=== PATIENT | male | born 1975 | race Caucasian/White ===

== ENCOUNTER 2016-06-27 10:22 | Emergency (ER) | payer OTHER ==
[~2016-06-27] VITALS: Ht 182.9 cm; Wt 111.4 kg
[~2016-06-27 10:22] MED LIST: FLUT0.15; IBUP-103 PO; LORA-749 PO
[2016-06-27 10:26] VITALS: TEMP 36.7; Ht 182.9 cm; Wt 111.4 kg
[2016-06-27] MEDS ORDERED: ALBUT/IPRATROP 3MG/0.5MG NEB 3 ML VIAL INH STA ×2 (10:47→12:30)
[2016-06-27] MEDS ORDERED: FLVHFA44 INH ×2 (10:57→13:32)
[2016-06-27] MEDS ORDERED: ADVIN10/60 INH (10:57)
[2016-06-27 11:16] VITALS: O2SAT 94
--- NOTE | 2016-06-27 11:24 | DIAGNOSTIC IMAGING REPORT ---
CHEST ONE VIEW PORTABLE CLINICAL HISTORY: Respiratory distress. Dyspnea. COMPARISON STUDY: Chest radiograph November 20, 2012. FINDINGS: There is no pneumothorax or pleural effusion. There is borderline cardiomegaly without evidence of pulmonary edema. No consolidation is identified to suggest pneumonia. IMPRESSION: 1. No acute cardiopulmonary findings. 2. Borderline cardiomegaly. Electronically signed by: Dickson Zuluaga M.D. 06/27/2016 11:22 AM Dictated Date/Time: 06/27/2016 11:22 AM
[2016-06-27 11:28] LABS: URINE APPEARANCE CLEAR (CLEAR); URINE BILIRUBIN NEG (NEG); URINE COLOR YELLOW; URINE NITRITE NEG (NEG); URINE PH 8.5 (4.5-7.5); UROBILINOGEN NEG (NEG)
[2016-06-27 11:37] LABS: MANUAL MICROSCOPIC REQUIRED? NO; REVIEW REQ? NO
[2016-06-27 11:39] LABS: BASO % 0.3 %; BASO ABS # 0.02 K/uL (0-0.2); COMPLETE YES; EOS % 1.3 %; HEMATOCRIT 42.7 % (42-52); IG% 0.3 %; LYMPH % 20.8 %; LYMPH ABS # 1.65 K/uL (1.2-3.4); MEAN CORPUSCULAR HEMOGLOBIN 30.9 pg (25-34); MEAN CORPUSCULAR HGB CONC 35.1 g/dl (32-36); MEAN PLATELET VOLUME 9.9 fL (7.4-10.4); MONO % 6.8 %; NEUT % 70.5 %; PLATELET COUNT 209 K/uL (130-400); RED BLOOD COUNT 4.85 M/uL (4.7-6.1); WHITE BLOOD COUNT 7.95 K/uL (4.8-10.8)
[2016-06-27] MEDS ORDERED: METHYLPREDNISOLONE 125 MG VIAL IV STA (11:48)
[2016-06-27 11:52] LABS: ALT/SGPT 35 U/L (12-78); AST/SGOT 20 U/L (15-37); BLOOD UREA NITROGEN 12 mg/dl (7-18); BUN/CREATININE RATIO 13.2 (10-20); CALCIUM 8.6 mg/dl (8.5-10.1); CARBON DIOXIDE 28 mmol/L (21-32); CHLORIDE 108 mmol/L (98-107); CREATININE 0.92 mg/dl (0.60-1.40); GLUCOSE 82 mg/dl (70-99); POTASSIUM 4.1 mmol/L (3.5-5.1); SODIUM 141 mmol/L (136-145)
[2016-06-27 12:03] LABS: ALB/GLOB RATIO 1.2 (0.9-2); ALKALINE PHOSPHATASE 74 U/L (45-117); CKMB/CK RATIO 0.7 (0-3.0)
[2016-06-27] MEDS ORDERED: AZITHROMYCIN 250 MG TAB PO STA (13:29)
[2016-06-27] MEDS ORDERED: AZIT-60 PO (13:32)
[2016-06-27] MEDS ORDERED: PRVHFAIN INH (13:32)
[2016-06-27] MEDS ORDERED: PRED50TA PO (13:32)
[2016-06-27 13:57] VITALS: BP 128/68; PULSE 85; O2SAT 95
--- NOTE | 2016-06-27 16:40 | EMERGENCY ROOM VISIT NOTE ---
History Report prepared by Jorge: Karishma Meek Under the Supervision of: Dr. Xander Caba M.D. First contact with patient: 10:29 Chief Complaint: COUGH Stated Complaint: COUGH, TIGHT CHEST Nursing Triage Summary: pt reports rust to green colored mucus started 2 months ago has chest tightness started 1 month ago was seen may 25 dx with pneumonia and a few days later had f/u with lexa pipefitter helper told he has adult rsv. pt reports finishing course of antibiotics , prednisone, flovent, and advair. still uses inhalers last used this am. pt reports sx seemed better had white mucus yesterday sx worsened again. unable to get off couch. has body aches . pt reports no testing was done at time of dx. History of Present Illness The patient is a 40 year old male who presents to the Emergency Room with complaints of a constant worsening cough starting two months ago. The patient states that he had been fighting some sort of cold for the past two months that has made it hard to breath due to congestion. The patient reports that he was previously diagnosed with pneumonia in [facility]. He states that they gave him an inhaler and he has been using it, with only a little relief. He states that two days ago he started to experience a flare up of his symptoms. He states that his cough, chills, fatigue, and chest tightness worsened. The patient reports that the symptoms worsen with exertion. The patient complains of achiness. The patient reports a history of an umbilical hernia repair and a bowel resection for diverticulitis. The patient denies any recent travel and being a smoker. Pt denies LOC, headache, fevers, diaphoresis, visual changes, neck pain, chest pain, nausea, vomiting, abdominal pain, back pain, melena, hematochezia, urinary symptoms, numbness, weakness, lymphadenopathy, rash, or other complaints. Source of History: patient Onset: two months ago Position: other (global) Quality: other (global) Timing: constant Modifying Factors (Worsening): exertion Modifying Factors (Relieving): other (inhaler use) Associated Symptoms: + SOB, + chills, + cough, + fatigue Note: The patinet complains of achiness and his chest being tight. Review of Systems See HPI for pertinent positives and negatives. A total of ten systems were reviewed and were otherwise negative. Past Medical & Surgical Medical Problems: (1) Diverticulitis Surgical Problems: (1) H/O resection of large bowel (2) Umbilical hernia Family History No pertinent family history Social History Smoking Status: Never Smoker Alcohol Use: occasionally Drug Use: none Marital Status: Housing Status: lives with family Occupation Status: employed Current/Historical Medications Scheduled Albuterol (Ventolin Hfa), 2 PUFFS INH QID Azithromycin (Zithromax), 250 MG PO DAILY Fluticasone Prop/Salmeterol (Advair Diskus 100/50 60 Dose), 1 PUFF INH BID Fluticasone Propionate (Flovent Hfa), 2 PUFFS INH BID Prednisone (Prednisone), 50 MG PO DAILY Scheduled PRN Fluticasone Propionate (Flovent Hfa), 2 PUFFS INH DAILY PRN for Shortness of Breath Allergies Coded Allergies: POLLEN (Verified Allergy, Intermediate, itchy eyes, runny nose, sneezing, 06/27/16) Physical Exam Vital Signs Date Time Temp Pulse Resp B/P Pulse Ox O2 Delivery O2 Flow Rate FiO2 06/27/16 13:57 85 18 128/68 95 Room Air 06/27/16 12:43 77 16 139/70 95 Room Air 06/27/16 12:01 65 12 110/63 97 Room Air 06/27/16 11:16 94 Room Air 06/27/16 10:26 36.7 82 20 130/93 95 Room Air Physical Exam GENERAL: Awake, alert, uncomfortable appearing, in no distress HENT: Normocephalic, atraumatic. Oropharynx unremarkable. EYES: Normal conjunctiva. Sclera non-icteric. NECK: Supple. No nuchal rigidity. FROM. No JVD. RESPIRATORY: Clear to auscultation. CARDIAC: Regular rate, normal rhythm. Extremities warm and well perfused. Pulses equal. ABDOMEN: Soft, non-distended. No tenderness to palpation. No rebound or guarding. No masses. RECTAL: Deferred. MUSCULOSKELETAL: Chest examination reveals no tenderness. The back is symmetrical on inspection without obvious abnormality. There is no CVA tenderness to palpation. No joint edema. LOWER EXTREMITIES: Calves are equal size bilaterally and non-tender. No edema. No discoloration. NEURO: Normal sensorium. No sensory or motor deficits noted. SKIN: No rash or jaundice noted. Medical Decision & Procedures ER Provider Diagnostic Interpretation: Radiology results as stated below per my review and radiologist interpretation: CHEST ONE VIEW PORTABLE CLINICAL HISTORY: Respiratory distress. Dyspnea. COMPARISON STUDY: Chest radiograph November 20, 2012. FINDINGS: There is no pneumothorax or pleural effusion. There is borderline cardiomegaly without evidence of pulmonary edema. No consolidation is identified to suggest pneumonia. IMPRESSION: 1. No acute cardiopulmonary findings. 2. Borderline cardiomegaly. Electronically signed by: Dickson Zuluaga M.D. 06/27/2016 11:22 AM Dictated Date/Time: 06/27/2016 11:22 AM Laboratory Results 06/27/16 11:15 Red Blood Count 4.85, Mean Corpuscular Volume 88.0, Mean Corpuscular Hemoglobin 30.9, Mean Corpuscular Hemoglobin Concent 35.1, Mean Platelet Volume 9.9, Neutrophils (%) (Auto) 70.5, Lymphocytes (%) (Auto) 20.8, Monocytes (%) (Auto) 6.8, Eosinophils (%) (Auto) 1.3, Basophils (%) (Auto) 0.3, Neutrophils # (Auto) 5.62, Lymphocytes # (Auto) 1.65, Monocytes # (Auto) 0.54, Eosinophils # (Auto) 0.10, Basophils # (Auto) 0.02 06/27/16 11:15 Test 06/27/16 11:15 06/27/16 11:16 06/27/16 11:20 White Blood Count 7.95 K/uL (4.8-10.8) Red Blood Count 4.85 M/uL (4.7-6.1) Hemoglobin 15.0 g/dL (14.0-18.0) Hematocrit 42.7 % (42-52) Mean Corpuscular Volume 88.0 fL (80-100) Mean Corpuscular Hemoglobin 30.9 pg (25-34) Mean Corpuscular Hemoglobin Concent 35.1 g/dl (32-36) Platelet Count 209 K/uL (130-400) Mean Platelet Volume 9.9 fL (7.4-10.4) Neutrophils (%) (Auto) 70.5 % Lymphocytes (%) (Auto) 20.8 % Monocytes (%) (Auto) 6.8 % Eosinophils (%) (Auto) 1.3 % Basophils (%) (Auto) 0.3 % Neutrophils # (Auto) 5.62 K/uL (1.4-6.5) Lymphocytes # (Auto) 1.65 K/uL (1.2-3.4) Monocytes # (Auto) 0.54 K/uL (0.11-0.59) Eosinophils # (Auto) 0.10 K/uL (0-0.5) Basophils # (Auto) 0.02 K/uL (0-0.2) RDW Standard Deviation 41.8 fL (36.4-46.3) RDW Coefficient of Variation 13.0 % (11.5-14.5) Immature Granulocyte % (Auto) 0.3 % Immature Granulocyte # (Auto) 0.02 K/uL (0.00-0.02) Anion Gap 5.0 mmol/L (3-11) Est Creatinine Clear Calc Drug Dose 139.0 ml/min Estimated GFR () 121.0 Estimated GFR (Non- 104.4 BUN/Creatinine Ratio 13.2 (10-20) Calcium Level 8.6 mg/dl (8.5-10.1) Total Bilirubin 0.6 mg/dl (0.2-1) Aspartate Amino Transf (AST/SGOT) 20 U/L (15-37) Alanine Aminotransferase (ALT/SGPT) 35 U/L (12-78) Alkaline Phosphatase 74 U/L (45-117) Total Creatine Kinase 116 U/L (39-308) Creatine Kinase MB 0.8 ng/ml (0.5-3.6) Creatine Kinase MB Ratio 0.7 (0-3.0) Troponin I < 0.015 ng/ml (0-0.045) Pro-B-Type Natriuretic Peptide 29 pg/ml (0-450) Total Protein 6.9 gm/dl (6.4-8.2) Albumin 3.8 gm/dl (3.4-5.0) Globulin 3.1 gm/dl (2.5-4.0) Albumin/Globulin Ratio 1.2 (0.9-2) Bedside D-Dimer 227 ng/mlFEU (0-450) Urine Color YELLOW Urine Appearance CLEAR (CLEAR) Urine pH 8.5 (4.5-7.5) Urine Specific Thornton 1.020 (1.000-1.030) Urine Protein NEG (NEG) Urine Glucose (UA) NEG (NEG) Urine Ketones NEG (NEG) Urine Occult Blood NEG (NEG) Urine Nitrite NEG (NEG) Urine Bilirubin NEG (NEG) Urine Urobilinogen NEG (NEG) Urine Leukocyte Esterase NEG (NEG) Laboratory results reviewed by me Medications Administered Medications (Trade) Dose Ordered Sig/Charanjit Route Start Time Stop Time Status Last Admin Dose Admin Albuterol/ Ipratropium (Duoneb) 3 ml NOW STAT INH 06/27/16 10:47 06/27/16 10:49 DC 06/27/16 11:19 3 ML Methylprednisolone Sodium Succinate (Solu-Medrol IV) 125 mg NOW STAT IV 06/27/16 11:48 06/27/16 11:49 DC 06/27/16 12:01 125 MG Albuterol/ Ipratropium (Duoneb) 3 ml NOW STAT INH 06/27/16 12:30 06/27/16 12:32 DC 06/27/16 12:43 3 ML Azithromycin (Zithromax Tab) 500 mg NOW STAT PO 06/27/16 13:29 06/27/16 13:30 DC 06/27/16 13:59 500 MG Prednisone (PredniSONE TAB) 60 mg NOW STAT PO 06/27/16 13:29 06/27/16 13:30 DC 06/27/16 14:00 60 MG ECG Indication: SOB/dyspnea Rate (beats per minute): 69 Rhythm: sinus with SA Findings: no acute ischemic change, no ectopy ED Course 1046: The patient was evaluated in room A10. A complete history and physical exam was performed. 1047: Ordered Duoneb 3 ml INH. 1148: Ordered Solu-Medrol IV 125 mg IV. 1206: I reevaluated the patient and he is feeling better with the breathing treatment. 1230: Ordered Duoneb 3 ml INH. 1329: Ordered Prednisone 60 mg PO, Zithromax Tab 500 mg PO. 1331: I reevaluated the patient. Discussed results and discharge instructions: He verbalized understanding and agreement. The patient is ready for discharge. Medical Decision Triage Nursing notes reviewed. The patient's presentation and history were concerning for shortness of breath and chest tightness with history of pneumonia. Etiologies such as pneumonia, COPD, reactive airway disease, CHF, cardiac ischemia, pulmonary embolism, pneumothorax, musculoskeletal, infections, gastrointestinal, as well as others were entertained. The patient was evaluated. His sat was hovering in the 93-95% range. There is no significant wheezing on examination. Blood work, EKG, and chest x-ray was performed. The patient was given a DuoNeb. Solu-Medrol was administered. The patient received a second DuoNeb treatment. His CBC, chemistry panel, urinalysis, and cardiac markers were unremarkable. D-dimer is negative. Chest imaging revealed no evidence of pneumonia. He does have a productive cough. On further history the patient does note a childhood history of reactive airway disease. I discussed conservative treatment with him. The patient felt comfortable with this. He will be treated with Flovent, albuterol inhaler, prednisone, and Zithromax. I did discuss referral to pulmonology. If he worsens in any way he will be back to the emergency department. The patient felt very comfortable with this plan as did his significant other. By the evaluation outlined above other emergent etiologies such as those listed in the differential, as well as others, were deemed relatively unlikely. Return instructions were outlined and the patient was discharged in stable condition. The patient was referred to PCP and pulmonology for follow-up for a recheck of the current condition. The chart was completed utilizing [employer] Speech voice recognition software. Grammatical errors, random word insertions, pronoun errors, and incomplete sentences are an occasional consequence of this system due to software limitations, ambient noise, and hardware issues. Any formal questions or concerns about the content, text, or information contained within the body of this dictation should be directly addressed to the physician for clarification. Impression Primary Impression: Cough Additional Impression: Shortness of breath Scribe Attestation The scribe's documentation has been prepared under my direction and personally reviewed by me in its entirety. I confirm that the note above accurately reflects all work, treatment, procedures, and medical decision making performed by me. Departure Information Dispostion Home / Self-Care Prescriptions Fluticasone Propionate (Flovent Hfa) 120 Puffs/5280 Mcg Aero 2 PUFFS INH BID for 30 Days, #1 INHALER 2 Refills Prov: Xander Caba MD 06/27/16 Albuterol (Ventolin Hfa) 60 Puffs/5400 Mcg Aers 2 PUFFS INH QID for 5 Days, #1 INHALER Prov: Xander Caba MD 06/27/16 Azithromycin (ZITHROMAX) 250 Mg Tab 250 MG PO DAILY, #4 TAB Prov: Xander Caba MD 06/27/16 Prednisone (Prednisone) 50 Mg Tab 50 MG PO DAILY for 4 Days, #4 TAB Prov: Xander Caba MD 06/27/16 Referrals No Doctor, Assigned (PCP) Forms HOME CARE DOCUMENTATION FORM, IMPORTANT VISIT INFORMATION Patient Instructions My [facility] Additional Instructions Albuterol Inhaler: Take 2 puffs four times daily for five days, then as needed. Flovent Inhaler: Take one puff twice daily for your breathing. Prednisone 50mg: Once daily until the prescription is finished. It is best to take this earlier in the day as some patients note occasional difficulty falling asleep when taken in the late evening. Azithromycin(Zithromax) 250mg: Take one a day for 4 additional days. All antibiotics can cause diarrhea. If this occurs and you feel worse or it does not resolve in 1-2 days follow up with your doctor or return to the Emergency Department as this could be signs of serious underlying problems. Any medication can cause an allergic reaction, stop the pills immediately and return to the ER for rash, hives, breathing difficulties, or swelling. Acetaminophen(Tylenol) may be used for fever or pain. Use 1000mg every six hours as needed. Avoid using more than 4000mg in a 24 hour period. (AND/OR) Ibuprofen(Motrin, Advil) may be used for fever or pain. Use 600mg every six hours as needed. Take with food. Avoid using more than 2400mg in a 24 hour period. Do not use 2400mg per day for more than three consecutive days without physician direction. Prolonged inappropriate use can lead to stomach upset or ulcers. Rest and drink plenty of fluids. Avoid smoke/smoking, fumes, dust, or any triggers in the past that may have affected your breathing. Continue current medications. Return to the ER for chest pain, difficulty breathing, fevers, vomiting, worsening of your condition, or as needed. Follow up with your primary physician this week for a recheck of your current condition. Follow-up with Dr. Darling of pulmonology as discussed. Call the office on Tuesday. Problem Qualifiers
== END 2016-06-27 14:06 | disposition home or self-care (01) ==
LOC: C.EDB 10:23 → C.EDA 14:06
DX: R05 Cough (principal); R06.02 Shortness of breath; K42.9 Umbilical hernia without obstruction or gangrene

== ENCOUNTER 2024-06-16 14:24 | Observation (INO) ==
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
[2024-06-16] MEDS: ONDANSETRON INJ 2 MG/ML 2 ML VIAL IV STA (15:17)
[2024-06-16] MEDS: diphenhydrAMINE 50 MG/ML VIAL IV STA ×2 (15:17→18:12)
[2024-06-16] MEDS: SODIUM CHLORIDE 0.9% 1,000 ML IV ONE ×2 (15:18→18:12)
[2024-06-16] MEDS: PROCHLORPERAZINE 5 MG/ML 2 ML VIAL IV STA (15:18)
[2024-06-16 15:25] LABS: Basophils # (auto) 0.05 K/uL (0.00-0.20); Basophils % (auto) 0.5 %; Eosinophils # (auto) 0.22 K/uL (0.00-0.50); Hematocrit (blood only) 44.4 % (42.0-52.0); Hemoglobin 15.3 g/dl (14.0-18.0); Immature Granulocytes # (auto) 0.04 K/uL (0.01-0.20); Immature Granulocytes % (auto) 0.4 %; Lymphocytes # (auto) 2.81 K/uL (1.20-3.40); Mean Corpuscular Hemoglobin 29.1 pg (25.0-34.0); Mean Corpuscular Hgb Conc 34.5 g/dL (32.0-36.0); Mean Corpuscular Volume 84.6 fL (80.0-100.0); Monocytes # (auto) 0.73 K/uL (0.11-0.59); Monocytes % (auto) 6.8 %; Neutrophils # (auto) 6.94 K/uL (1.40-6.50); Neutrophils % (auto) 64.3 %; Platelet Count 292 K/uL (130-400); RDW Coefficient of Variation 12.9 % (11.5-14.5); RDW Standard Deviation 39.6 fL (36.4-46.3); Red Blood Count 5.25 M/uL (4.70-6.10); White Blood Count 10.79 K/ul (4.8-10.8)
[2024-06-16 15:41] LABS: Alanine Aminotransferase 21 U/L (7-52); Albumin Level 4.8 gm/dl (3.4-5.0); Alkaline Phosphatase 68 U/L (34-104); Anion Gap 9 (3-11); Aspartate Aminotransferase 26 U/L (13-39); Bilirubin,Total 0.6 mg/dl (0.2-1.0); Blood Urea Nitrogen 14 mg/dl (6-23); Calcium 9.5 mg/dl (8.6-10.3); Carbon Dioxide 25 mmol/L (21-32); Chloride 105 mmol/L (98-107); Globulin 2.4 gm/dl (2.5-4.0); Glucose 108 mg/dl (70-99(Fasting)); Potassium 3.6 mmol/L (3.5-5.1); Sodium 139 mmol/L (136-145); Total Protein 7.2 gm/dl (6.0-8.3)
[2024-06-16 16:09] LABS: Partial Thromboplastin Ratio 0.9; Partial Thromboplastin Time 24 Seconds (21-31); Prothrombin Time 10.9 Seconds (9.0-12.0)
[2024-06-16] MEDS: dexAMETHasone**PF** 10 MG/ML VIAL IV ONE (17:19)
[2024-06-16] MEDS: MECLIZINE HCL 25 MG TAB PO STA (17:20)
[2024-06-16] MEDS: KETOROLAC TROMETHAMINE 15 MG/ML VIAL IV STA (17:20)
[2024-06-16] MEDS: LORazepam 2 MG/1 ML VIAL IV STA (17:38)
[2024-06-16] MEDS: OPTIRAY 320 125ml IV ONE (17:48)
--- NOTE | 2024-06-16 18:09 | CT Scan Report ---
CT head without contrast Technique: Using multidetector thin collimation helical acquisition technique, axial, coronal and sagittal CT images from the skull base to the vertex were obtained without intravenous contrast. Dose reduction techniques were achieved by using automatic exposure control and/or adjustment of mA and/or kV according to patient size and/or use of iterative reconstruction technique. History and Findings: No intracranial hemorrhage, mass-effect, or midline shift. The ventricles are proportionate to the cerebral sulci. The platt to white matter differentiation of the cerebral hemispheres is preserved. The basal cisterns are patent. The visualized paranasal sinuses are clear. Mastoid air cells are clear. Impression: No acute intracranial pathology. Electronically signed by Aurelia Lu 06-16-2024 6:09 PM
[2024-06-16] MEDS: METOCLOPRAMIDE HCL INJ 5 MG/ML 2 ML VIAL IV STA (18:12)
--- NOTE | 2024-06-16 18:16 | CT Scan Report ---
CT angiogram of the neck CT angiogram of the brain . Technique: HEAD CT: Using multidetector thin collimation helical acquisition technique, axial, coronal and sagittal CT images from the skull base to the vertex were obtained without intravenous contrast. HEAD and NECK CTA: During rapid bolus intravenous injection of nonionic contrast material, axial images were obtained using thin collimation multidetector helical technique from the base of the neck through the of vertex of the head. This CT angiogram data was reconstructed at thin intervals with mild overlap. 3D reconstructions were obtained. The axial source images, multiplanar reformations, 3D reconstructions in both maximum intensity projection display and volume rendered models were reviewed. Dose reduction techniques were achieved by using automatic exposure control and/or adjustment of mA and/or kV according to patient size and/or use of iterative reconstruction technique. Comp: Same day Ct head, History and Findings: Critical Neck CTA:Extracranial circulation: Patent bilateral common carotid arteries. Patent bilateral bulb areas. Patent bilateral ICAs. Patent bilateral equal size vertebral arteries. There is plaque at the origin of the left vertebral artery with stenosis probably measuring 50 to 60%. Impression Patent carotid vessels. Probable stenosis at the origin of the left vertebral artery. Electronically signed by Aurelia Lu 06-16-2024 6:16 PM
--- NOTE | 2024-06-16 18:20 | CT Scan Report ---
CT angiogram of the brain . Technique: HEAD CT: Using multidetector thin collimation helical acquisition technique, axial, coronal and sagittal CT images from the skull base to the vertex were obtained without intravenous contrast. HEAD and NECK CTA: During rapid bolus intravenous injection of nonionic contrast material, axial images were obtained using thin collimation multidetector helical technique from the base of the neck through the of vertex of the head. This CT angiogram data was reconstructed at thin intervals with mild overlap. 3D reconstructions were obtained. The axial source images, multiplanar reformations, 3D reconstructions in both maximum intensity projection display and volume rendered models were reviewed. Dose reduction techniques were achieved by using automatic exposure control and/or adjustment of mA and/or kV according to patient size and/or use of iterative reconstruction technique. Comp: Same day Ct head, History and Findings: Dizziness. Head CTA demonstrates :Distal vertebral arteries, basilar artery and posterior circulation appeared unremarkable. Anterior cerebral arteries are patent. Middle cerebral arteries are patent. Intracranial ICAs are patent. Impression No significant stenosis Electronically signed by Aurelia Lu 06-16-2024 6:19 PM
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
[2024-06-16 20:26] LABS: Thyroid Stimulating Hormone 1.514 uIu/ml (0.300-4.500)
[2024-06-16] MEDS: LACTATED RINGER'S 1,000 ML IV SCH (21:01)
[2024-06-16] MEDS ORDERED: ONDANSETRON INJ 2 MG/ML 2 ML VIAL IV PRN (22:42)
[2024-06-16] MEDS ORDERED: PROCHLORPERAZINE 5 MG in SYRINGE 4 ML IV PRN (22:42)
[2024-06-16] MEDS ORDERED: KETOROLAC TROMETHAMINE 15 MG/ML VIAL IV PRN (22:42)
[2024-06-16] MEDS ORDERED: ALBUTEROL HFA 8 GM INHALER INH PRN (22:42)
[2024-06-16] MEDS ORDERED: MELATONIN 3 MG TAB PO PRN (22:42)
[2024-06-16] MEDS ORDERED: diazePAM 5 MG TABLET PO PRN (23:05)
[2024-06-16] MEDS: MECLIZINE HCL 25 MG TAB PO SCH (23:18)
[2024-06-17 04:51] VITALS: RESP 16
[2024-06-17 07:43] VITALS: BP 111/72; PULSE 77; TEMP 97.9; O2SAT 95
[2024-06-17] MEDS: predniSONE 20 MG TAB PO SCH (08:08)
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
[2024-06-17] MEDS ORDERED: dexAMETHasone 6 MG in SYRINGE 0 ML IV SCH (09:00)
--- NOTE | 2024-06-17 09:37 | Electrocardiogram Report ---
Test Reason : Blood Pressure : */* mmHG Vent. Rate : 71 BPM Atrial Rate : 71 BPM P-R Int : 214 ms QRS Dur : 100 ms QT Int : 396 ms P-R-T Axes : 68 -19 19 degrees QTcB Int : 430 ms Sinus rhythm with 1st degree A-V block Otherwise normal ECG When compared with ECG of 27-Jan-2020 15:46, KS interval has increased Confirmed by Delia Berry (González) on 06/17/2024 9:36:43 AM Referred By: REFERRED SELF Confirmed By: Delia Berry
== END 2024-06-17 14:39 | disposition home or self-care (01) ==
LOC: SUATTDRO → ED 14:24 → 2W 14:24 → SUATTDRO 20:13 → 2W 22:46